=== PATIENT | female | born 1975 | race Two or more races ===

== ENCOUNTER → 2017-11-13 | Outpatient (CLI) | payer BC, OTHER | LOC: BRMIMAGING 14:59 | PROVIDERS: ATTEND Internal Medicine | DX: M79.671 Pain in right foot (principal); M79.672 Pain in left foot; M79.641 Pain in right hand; M79.642 Pain in left hand; M53.3 Sacrococcygeal disorders, not elsewhere classified | CPT/HCPCS: 72202-PO; 73130-PO; 73630-PO ==